=== PATIENT | female | born 1970 | race Caucasian/White ===

== ENCOUNTER → 2020-06-18 | Outpatient (CLI) | payer OTHER ==
[~2020-06-18] MED LIST: CLEOCIN HCL150 MG PO; CYMBALTA30 MG PO; LYRICA75 MG PO; METHYLPHENIDATE10 MG PO; MORPHINE SULFAT30 M2 PO; QUETIAPINE FUM100 MG PO; TIZANIDINE HCL4 MG PO
== END | disposition home or self-care (01) ==
LOC: MRI 12:45
PROVIDERS: ATTEND Physical Medicine & Rehabilitation
DX: M25.562 Pain in left knee (principal); M25.571 Pain in right ankle and joints of right foot

== ENCOUNTER → 2022-07-05 | Outpatient (CLI) | payer MEDICARE, OTHER | LOC: MRI 08:59 | PROVIDERS: ATTEND Physical Medicine & Rehabilitation | DX: M47.27 Other spondylosis with radiculopathy, lumbosacral region (principal) | CPT/HCPCS: 72148 ==